=== PATIENT | male | born 1975 | race Caucasian/White ===

== ENCOUNTER 2021-06-17 19:19 | Inpatient (IN) | payer BC ==
[2021-06-17] MEDS ORDERED: Morphine 4 MG/ML Syringe IVPUSH ONE (20:00)
[2021-06-17] MEDS: Sodium Chloride 0.9% 10 ML Syringe FLUSH PRN ×2 (20:12→21:37)
[2021-06-17] MEDS ORDERED: Ondansetron 4 MG/2 ML SDV IVPUSH ONE (20:15)
[2021-06-17] MEDS ORDERED: Lactated Ringers 1,000 ML IV SCH (20:15)
[2021-06-17] MEDS ORDERED: Diatrizoate Meglumine/Diatrizoate Sodium 37% 120 ML Bottle PO ONE (21:23)
[2021-06-17] MEDS ORDERED: Sodium Chloride 0.9% 10 ML SDV FLUSH ONE (21:24)
[2021-06-17] MEDS ORDERED: Iopamidol 612 MG/ML 100 ML Bottle IVPUSH ONE (21:24)
--- NOTE | 2021-06-17 22:37 | EDM.PDOC ---
ED HPI GENERAL MEDICAL PROBLEM - General Chief Complaint: Abdominal Pain Stated Complaint: ABDOMINAL PAIN Time Seen by Provider: 06/17/21 19:30 - History of Present Illness INITIAL COMMENTS - FREE TEXT/NARRATIVE: Patient arrived to ED by private vehicle He is accompanied by his Onset of symptoms was 3 days ago Endorses pain across upper abdomen, which has gotten progressively worse since onset Pain severity is currently rated 9/10 He has not taken anything for pain Associated nausea, without vomiting Had normal bowel movement this morning Denies fever or dysuria He had a partial bowel resection in 2014 for "twisting" of a bowel segment (? obstruction) Since then has had 2 or 3 occurrences of pain similar to current symptoms, which resolved spontaneously over several hours Abdominal Pain Score (Numeric/FACES): 9 - Related Data Allergies Allergy/AdvReac Type Severity Reaction Status Date / Time No Known Allergies Allergy Verified 06/18/21 00:25 Home Meds: Home Meds Aspirin [Luci Chewable Aspirin] 81 mg PO DAILY 06/17/21 [History] Esomeprazole Magnesium [Nexium 24Hr] 20 mg PO DAILY 06/17/21 [History] Glimepiride 1 mg PO DAILY 06/17/21 [History] Multivitamin 1 tab PO DAILY 06/17/21 [History] carvediloL [Carvedilol] 3.125 mg PO DAILY 06/17/21 [History] lisinopriL [Lisinopril] 20 mg PO DAILY 06/17/21 [History] metFORMIN [Glucophage] 500 mg PO DAILY 06/17/21 [History] Social & Family History - Tobacco Use Tobacco Use Status *Q: Former Tobacco User Used Tobacco, but Quit: Yes Month/Year Tobacco Last Used: 05/2020 - Caffeine Use Caffeine Use: Reports: Coffee, Energy Drinks, Soda, Tea - Recreational Drug Use Recreational Drug Use: No ED ROS GENERAL - Review of Systems Review Of Systems: See Below Free Text/Narrative/Comment: Constitutional - no fever Eyes - no eye pain; no visual disturbance ENT - no rhinorrhea; no congestion; no epistaxis Cardiovascular - no chest pain Respiratory - no shortness of breath; no cough Gastrointestinal - abdominal pain; nausea; no vomiting; diarrhea Genitourinary - no dysuria Musculoskeletal - no neck pain; no back pain; no extremity injury Neurological - no headache; no speech disturbance; no weakness ED EXAM, GENERAL - Physical Exam Exam: See Below Free Text/Narrative:: Constitutional - awake; alert; moderate pain distress Head - no facial swelling or weakness Eyes - extra ocular motion intact; conjunctiva normal ENT - no nasal deformity; no epistaxis; normal phonation; mucus membranes moist; Neck - no swelling Respiratory - normal respiratory effort; no crackles or wheezing; no stridor Cardiovascular - regular rhythm; normal rate; S1; S2; grade 1/6 systolic murmur GI/Abdomen - soft; mild distention; moderate tenderness upper abdomen and left lower quadrant; no rebound; no guarding; no mass Musculoskeletal - grossly normal strength and motion; no swelling or deformity Skin - warm; dry Neurologic - normal speech; no weakness; gait intact Psychiatric - normal mood and affect; memory and attention normal Course - Vital Signs Text/Narrative:: . Considered etiologies included: Abdominal pain, pancreatitis, gastritis, biliary colic, bowel obstruction Symptoms and examination were discussed Investigations were initiated Empiric treatment was initiated with IV morphine, ondansetron, and IV fluid infusion At reevaluation pain severity had improved to 6/10 Results were discussed, with CT findings for small bowel obstruction 2234 Patient was discussed with Dr. Young (general surgery) Dr. Young evaluated patient in ED Patient was admitted for further care Last Recorded V/S: Last Vital Signs Temp 36.5 C 06/19/21 00:35 Pulse 63 06/19/21 00:35 Resp 16 06/19/21 00:35 BP 114/77 06/19/21 00:35 Pulse Ox 95 06/19/21 00:35 - Orders/Labs/Meds Orders: Medication Orders Carvedilol (Carvedilol 3.125 Mg Tab) 3.125 mg PO WITHBREAKFAST [facility] Lactated Ringer's (Ringers, Lactated) 1,000 mls @ 100 mls/hr IV ASDIRECTED EARLENE Last Admin: 06/18/21 21:32 Dose: 100 mls/hr Documented by: Infusion: 06/18/21 21:32 Dose: 100 mls/hr Documented by: Admin: 06/18/21 11:48 Dose: 100 mls/hr Documented by: Infusion: 06/18/21 11:13 Dose: 100 mls/hr Documented by: Admin: 06/18/21 01:13 Dose: 100 mls/hr Documented by: DIXON Morphine Sulfate (Morphine 2 Mg/Ml Syringe) 1 mg IVPUSH Q4H PRN PRN Reason: Pain (severe 7-10) Last Admin: 06/18/21 14:35 Dose: 1 mg Documented by: Admin: 06/18/21 03:41 Dose: 1 mg Documented by: Admin: 06/17/21 23:35 Dose: 1 mg Documented by: MK Ondansetron HCl (Ondansetron 4 Mg/2 Ml Sdv) 4 mg IVPUSH Q6H PRN PRN Reason: Nausea Last Admin: 06/18/21 10:30 Dose: 4 mg Documented by: Admin: 06/18/21 01:56 Dose: 4 mg Documented by: DIXON Pantoprazole Sodium (Pantoprazole 40 Mg Tab.Cr) 40 mg PO DAILY EARLENE Sodium Chloride (Sodium Chloride 0.9% 10 Ml Syringe) 10 ml FLUSH ASDIRECTED PRN PRN Reason: Keep Vein Open Last Admin: 06/17/21 21:37 Dose: 10 ml Documented by: Admin: 06/17/21 20:12 Dose: 10 ml Documented by: MK Labs: Laboratory Tests 06/17/21 06/17/21 06/17/21 Range/Units 20:05 20:05 21:27 WBC 11.02 H (4.23-9.07) K/mm3 RBC 5.30 (4.63-6.08) M/mm3 Hgb 15.7 (13.7-17.5) gm/dl Hct 45.9 (40.1-51.0) % MCV 86.6 (79.0-92.2) fl MCH 29.6 (25.7-32.2) pg MCHC 34.2 (32.2-35.5) g/dl RDW Std Deviation 42.0 (35.1-43.9) fL Plt Count 278 (163-337) K/mm3 MPV 10.6 (9.4-12.3) fl Neut % (Auto) 73.3 H (34.0-67.9) % Lymph % (Auto) 17.2 L (21.8-53.1) % [place] % (Auto) 8.3 (5.3-12.2) % Eos % (Auto) 0.7 L (0.8-7.0) Baso % (Auto) 0.3 (0.1-1.2) % Neut # (Auto) 8.07 H (1.78-5.38) K/mm3 Lymph # (Auto) 1.90 (1.32-3.57) K/mm3 [place] # (Auto) 0.92 H (0.30-0.82) K/mm3 Eos # (Auto) 0.08 (0.04-0.54) K/mm3 Baso # (Auto) 0.03 (0.01-0.08) K/mm3 Manual Slide Review Normal smear Sodium 140 (136-145) mEq/L Potassium 4.2 (3.5-5.1) mEq/L Chloride 104 (98-107) mEq/L Carbon Dioxide 27 (21-32) mEq/L Anion Gap 13.2 (5-15) BUN 15 (7-18) mg/dL Creatinine 0.9 (0.7-1.3) mg/dL Est Cr Clr Drug Dosing 93.85 mL/min Estimated GFR (MDRD) > 60 (>60) mL/min BUN/Creatinine Ratio 16.7 (14-18) Glucose 125 H (70-99) mg/dL Calcium 9.2 (8.5-10.1) mg/dL Total Bilirubin 0.6 (0.2-1.0) mg/dL AST 19 (15-37) U/L ALT 43 (16-63) U/L Alkaline Phosphatase 83 (46-116) U/L Total Protein 7.9 (6.4-8.2) g/dl Albumin 4.4 (3.4-5.0) g/dl Globulin 3.5 gm/dL Albumin/Globulin Ratio 1.3 (1-2) Lipase 131 (73-393) U/L Urine Color Yellow (Yellow) Urine Appearance Clear (Clear) Urine pH 7.0 (5.0-8.0) Ur Specific [place] 1.025 (1.005-1.030) Urine Protein Negative (Negative) Urine Glucose (UA) Negative (Negative) Urine Ketones Negative (Negative) Urine Occult Blood Negative (Negative) Urine Nitrite Negative (Negative) Urine Bilirubin Negative (Negative) Urine Urobilinogen 0.2 (0.2-1.0) Ur Leukocyte Esterase Negative (Negative) Urine RBC Not seen (0-5) /hpf Urine WBC 0-5 (0-5) /hpf Ur Epithelial Cells Not seen (0-5) /hpf Amorphous Sediment Few H (NOT SEEN) /hpf Urine Bacteria Rare (FEW) /hpf Urine Mucus Few (FEW) /hpf Meds: Medications Generic Name Dose Route Start Last Admin Trade Name Cody PRN Reason Stop Dose Admin Carvedilol 3.125 mg 06/19/21 09:00 Carvedilol 3.125 Mg Tab PO WITHBREAKFAST EARLENE Lactated Ringer's 1,000 mls @ 100 mls/hr 06/17/21 23:00 06/18/21 21:32 Ringers, Lactated IV 100 mls/hr ASDIRECTED EARLENE Administration Morphine Sulfate 1 mg 06/17/21 22:57 06/18/21 14:35 Morphine 2 Mg/Ml Syringe IVPUSH 1 mg Q4H PRN Administration Pain (severe 7-10) Ondansetron HCl 4 mg 06/18/21 01:11 06/18/21 10:30 Ondansetron 4 Mg/2 Ml Sdv IVPUSH 4 mg Q6H PRN Administration Nausea Pantoprazole Sodium 40 mg 06/19/21 09:00 Pantoprazole 40 Mg Tab.Cr PO DAILY EARLENE Sodium Chloride 10 ml 06/17/21 20:00 06/17/21 21:37 Sodium Chloride 0.9% 10 Ml Syringe FLUSH 10 ml ASDIRECTED PRN Administration Keep Vein Open Discontinued Medications Generic Name Dose Route Start Last Admin Trade Name Cody PRN Reason Stop Dose Admin Diatrizoate Meglum/Diatrizoate Sod 60 ml 06/17/21 21:23 06/17/21 21:37 Diatrizoate Meglumine/Diatrizoate Sodium 37% 120 Ml Bottle PO 06/17/21 21:24 60 ml ONETIME ONE Administration Diatrizoate Meglum/Diatrizoate Sod 120 ml 06/17/21 23:55 06/18/21 00:46 Diatrizoate Meglumine/Diatrizoate Sodium 37% 120 Ml Bottle NGTUBE 06/17/21 23:56 120 ml ONETIME ONE Administration Hydromorphone HCl 1 mg 06/18/21 04:16 06/18/21 08:47 Hydromorphone 1 Mg/Ml Syringe IVPUSH 1 mg Q4H PRN Administration Pain Lactated Ringer's 1,000 mls @ 250 mls/hr 06/17/21 20:15 06/17/21 20:11 Ringers, Lactated IV 250 mls/hr ASDIRECTED EARLENE Administration Sodium Chloride 1,000 mls @ 999 mls/hr 06/18/21 10:36 06/18/21 10:46 Normal Saline IV 06/18/21 11:36 999 mls/hr ONETIME ONE Administration Iopamidol 100 ml 06/17/21 21:24 06/17/21 21:37 Iopamidol 612 Mg/Ml 100 Ml Bottle IVPUSH 06/17/21 21:25 100 ml ONETIME ONE Administration Morphine Sulfate 4 mg 06/17/21 20:00 06/17/21 20:12 Morphine 4 Mg/Ml Syringe IVPUSH 06/17/21 20:01 4 mg ONETIME ONE Administration Ondansetron HCl 4 mg 06/17/21 20:15 06/17/21 20:19 Ondansetron 4 Mg/2 Ml Sdv IVPUSH 06/17/21 20:16 4 mg ONETIME ONE Administration Sodium Chloride 10 ml 06/17/21 21:24 06/17/21 21:54 Sodium Chloride 0.9% 10 Ml Sdv FLUSH 06/17/21 21:25 10 ml ONETIME ONE Administration - Radiology Interpretation Free Text/Narrative:: CT abdomen/pelvis, IV contrast, preliminary radiology report: 1. Partial small bowel obstruction or early complete SBO with transition point at the small bowel anastomosis Departure - Departure Time of Disposition: 23:55 Disposition: Admitted As Inpatient 64 Clinical Impression: Small bowel obstruction - Discharge Information Sepsis Event Note (ED) - Evaluation Sepsis Screening Result: No Definite Risk
--- NOTE | 2021-06-17 23:09 | PCM.HP.2 ---
H&P History of Present Illness - General Date of Service: 06/17/21 Admit Problem/Dx: Admission Diagnosis/Problem Admission Diagnosis/Problem Small bowel obstruction Source of Information: Patient History Limitations: Reports: No Limitations - History of Present Illness Initial Comments - Free Text/Narative: Mr. Headley is a 46 yo man presenting with three days of abdominal pain. He has had similar pain in the past. 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 This is the only abdominal operation he has had. Since then, he has occasionally had episodes of small bowel obstruction type symptoms which all resolved on their own fairly quickly without need for hospitalization or NG decompression. This time, the pain is worse and not going away. It has progressed over the past three days. He has not vomited but feels like he might. He had a bowel movement today but has not been passing flatus for a while. CT shows partial SBO with transition at stapled enteroenterostomy with upstream small bowel fecalization. He has diabetes managed with metformin, HTN, and palpitations for which he takes carvedilol. Abdominal Pain Score (Numeric/FACES): 9 - Related Data Allergies/Adverse Reactions: Allergies Allergy/AdvReac Type Severity Reaction Status Date / Time No Known Allergies Allergy Verified 06/17/21 19:40 Social & Family History - Tobacco Use Tobacco Use Status *Q: Former Tobacco User Used Tobacco, but Quit: Yes Month/Year Tobacco Last Used: 05/2020 - Caffeine Use Caffeine Use: Reports: Coffee, Energy Drinks, Soda, Tea - Recreational Drug Use Recreational Drug Use: No H&P Review of Systems - Review of Systems: Review Of Systems: See Below General: Reports: Malaise HEENT: Reports: No Symptoms Pulmonary: Reports: No Symptoms Cardiovascular: Reports: Palpitations Gastrointestinal: Reports: Abdominal Pain, Nausea Genitourinary: Reports: No Symptoms Musculoskeletal: Reports: No Symptoms Skin: Reports: No Symptoms Psychiatric: Reports: No Symptoms Neurological: Reports: No Symptoms Hematologic/Lymphatic: Reports: No Symptoms Immunologic: Reports: No Symptoms Exam - Exam Exam: See Below - Vital Signs Vital Signs: Last Vital Signs Temp 36.2 C 06/17/21 19:35 Pulse 68 06/17/21 19:35 Resp 18 06/17/21 19:35 BP 146/90 H 06/17/21 19:35 Pulse Ox 98 06/17/21 19:35 Weight: 93.349 kg - Exam General: Alert, Oriented, Mild Distress HEENT: Conjunctiva Clear Neck: Trachea Midline Lungs: Clear to Auscultation, Normal Respiratory Effort Cardiovascular: Regular Rate, Regular Rhythm GI/Abdominal Exam: Other (distended, tender, no rigidity, dull to percussion, midline incision scar with no evident hernia) Extremities: Normal Inspection Skin: Warm, Dry Neuro Extensive - Mental Status: Alert, Oriented x3 Psychiatric: Normal Mood - Patient Data Lab Results Last 24 hrs: Laboratory Results - last 24 hr 06/17/21 06/17/21 06/17/21 Range/Units 20:05 20:05 21:27 WBC 11.02 H (4.23-9.07) K/mm3 RBC 5.30 (4.63-6.08) M/mm3 Hgb 15.7 (13.7-17.5) gm/dl Hct 45.9 (40.1-51.0) % MCV 86.6 (79.0-92.2) fl MCH 29.6 (25.7-32.2) pg MCHC 34.2 (32.2-35.5) g/dl RDW Std Deviation 42.0 (35.1-43.9) fL Plt Count 278 (163-337) K/mm3 MPV 10.6 (9.4-12.3) fl Neut % (Auto) 73.3 H (34.0-67.9) % Lymph % (Auto) 17.2 L (21.8-53.1) % [place] % (Auto) 8.3 (5.3-12.2) % Eos % (Auto) 0.7 L (0.8-7.0) Baso % (Auto) 0.3 (0.1-1.2) % Neut # (Auto) 8.07 H (1.78-5.38) K/mm3 Lymph # (Auto) 1.90 (1.32-3.57) K/mm3 [place] # (Auto) 0.92 H (0.30-0.82) K/mm3 Eos # (Auto) 0.08 (0.04-0.54) K/mm3 Baso # (Auto) 0.03 (0.01-0.08) K/mm3 Manual Slide Review Normal smear Sodium 140 (136-145) mEq/L Potassium 4.2 (3.5-5.1) mEq/L Chloride 104 (98-107) mEq/L Carbon Dioxide 27 (21-32) mEq/L Anion Gap 13.2 (5-15) BUN 15 (7-18) mg/dL Creatinine 0.9 (0.7-1.3) mg/dL Est Cr Clr Drug Dosing 93.85 mL/min Estimated GFR (MDRD) > 60 (>60) mL/min BUN/Creatinine Ratio 16.7 (14-18) Glucose 125 H (70-99) mg/dL Calcium 9.2 (8.5-10.1) mg/dL Total Bilirubin 0.6 (0.2-1.0) mg/dL AST 19 (15-37) U/L ALT 43 (16-63) U/L Alkaline Phosphatase 83 (46-116) U/L Total Protein 7.9 (6.4-8.2) g/dl Albumin 4.4 (3.4-5.0) g/dl Globulin 3.5 gm/dL Albumin/Globulin Ratio 1.3 (1-2) Lipase 131 (73-393) U/L Urine Color Yellow (Yellow) Urine Appearance Clear (Clear) Urine pH 7.0 (5.0-8.0) Ur Specific [place] 1.025 (1.005-1.030) Urine Protein Negative (Negative) Urine Glucose (UA) Negative (Negative) Urine Ketones Negative (Negative) Urine Occult Blood Negative (Negative) Urine Nitrite Negative (Negative) Urine Bilirubin Negative (Negative) Urine Urobilinogen 0.2 (0.2-1.0) Ur Leukocyte Esterase Negative (Negative) Urine RBC Not seen (0-5) /hpf Urine WBC 0-5 (0-5) /hpf Ur Epithelial Cells Not seen (0-5) /hpf Amorphous Sediment Few H (NOT SEEN) /hpf Urine Bacteria Rare (FEW) /hpf Urine Mucus Few (FEW) /hpf Result Diagrams: 06/17/21 20:05 06/17/21 20:05 Sepsis Event Note - Evaluation Sepsis Screening Result: No Definite Risk - Focused Exam Vital Signs: Vital Signs Temp Pulse Resp BP Pulse Ox 06/17/21 19:35 36.2 C 68 18 146/90 H 98 Problem List Initiated/Reviewed/Updated: Yes Orders Last 24hrs: Active Orders 24 hr Category Date Time Status Patient Status [ADT] Routine ADT 06/17/21 22:57 Ordered Activity as Tolerated [RC] .Routine Care 06/17/21 22:57 Ordered Antiembolic Devices [RC] PER UNIT ROUTINE Care 06/17/21 22:58 Ordered Communication Order [RC] ASDIRECTED Care 06/17/21 23:02 Ordered Gastrointestinal Tube Mgmt [RC] ASDIRECTED Care 06/17/21 22:58 Ordered Gastrointestinal Tube Mgmt [RC] ASDIRECTED Care 06/17/21 22:59 Ordered Oxygen Therapy [RC] PRN Care 06/17/21 22:57 Ordered Peripheral IV Care [RC] . DIRECTED Care 06/17/21 20:00 Active RT Incentive Spirometry [RC] Q1HWA Care 06/17/21 22:57 Ordered Vital Signs [RC] Q4HR Care 06/17/21 22:57 Ordered Nothing Per Oral Diet [DIET] Diet 06/17/21 Breakfast Ordered Abdomen 1V Upright [CR] Stat Exams 06/17/21 22:59 Ordered Abdomen 1V Upright [CR] Timed Exams 06/18/21 08:00 Ordered Abdomen Pelvis w Cont [CT] Stat Exams 06/17/21 20:00 Taken Chest 1V Frontal [CR] Stat Exams 06/17/21 22:59 Ordered BASIC METABOLIC PANEL,BMP [CHEM] AM Lab 06/18/21 05:11 Ordered CBC WITH AUTO DIFF [HEME] AM Lab 06/18/21 05:11 Ordered Diatrizoate Mae/Diatrizoate Na [Gastrografin 37%] Med 06/17/21 23:55 Once 120 ml NGTUBE ONETIME ONE Lactated Ringers @ 100 MLS/HR(1000ml Bag) Med 06/17/21 23:00 Ordered Lactated Ringers [Ringers, Lactated] 1,000 ml IV ASDIRECTED Morphine Med 06/17/21 22:57 Ordered 1 mg IVPUSH Q4H PRN Sodium Chloride 0.9% [Saline Flush] Med 06/17/21 20:00 Active 10 ml FLUSH ASDIRECTED PRN Nasogastric Orogastric Tube Insertion [OM.PC] Routine Oth 06/17/21 22:58 Ordered Peripheral IV Insertion Adult [OM.PC] Stat Oth 06/17/21 19:59 Ordered Sequential Compression Device [OM.PC] Routine Oth 06/17/21 22:57 Ordered Resuscitation Status Routine Resus Stat 06/17/21 22:57 Ordered Medication Orders Diatrizoate Meglum/Diatrizoate Sod (Diatrizoate Meglumine/Diatrizoate Sodium 37% 120 Ml Bottle) 120 ml NGTUBE ONETIME ONE Stop: 06/17/21 23:56 Lactated Ringer's (Ringers, Lactated) 1,000 mls @ 100 mls/hr IV ASDIRECTED EARLENE Morphine Sulfate (Morphine 2 Mg/Ml Syringe) 1 mg IVPUSH Q4H PRN PRN Reason: Pain (severe 7-10) Sodium Chloride (Sodium Chloride 0.9% 10 Ml Syringe) 10 ml FLUSH ASDIRECTED PRN PRN Reason: Keep Vein Open Last Admin: 06/17/21 21:37 Dose: 10 ml Documented by: Admin: 06/17/21 20:12 Dose: 10 ml Documented by: MK Assessment/Plan Comment:: What looks like partial SBO at small bowel anastomosis on CT. Plan for NG placement with gastrografin challenge- abdominal plain film ordered for 0800. -morphine prn pain -LR @ 100 cc/hr -NPO- sips okay -NG to LIWS until midnight, then gastrografin challenge (120 mL gastrografin and 30 mL normal saline via NG) and NG clamping -repeat AM labs - Mortality Measure Prognosis:: Good
[2021-06-17] MEDS: Morphine 2 MG/ML SYRINGE IVPUSH PRN (23:35)
[2021-06-17] MEDS ORDERED: Diatrizoate Meglumine/Diatrizoate Sodium 37% 120 ML Bottle NGTUBE ONE (23:55)
[2021-06-18] MEDS: Lactated Ringers 1,000 ML IV SCH ×3 (01:13→21:32)
[2021-06-18] MEDS: Ondansetron 4 MG/2 ML SDV IVPUSH PRN ×2 (01:56→10:30)
[2021-06-18] MEDS: Morphine 2 MG/ML SYRINGE IVPUSH PRN ×2 (03:41→14:35)
[2021-06-18] MEDS: HYDROmorphone 1 MG/ML Syringe IVPUSH PRN ×2 (04:29→08:47)
--- NOTE | 2021-06-18 09:11 | PCM.SN.2 ---
- Free Text/Narrative Note: HD #2, admitted with small bowel obstruction S: severe pain and vomiting overnight, improved this morning. No flatus. O: AF-VSS recorded Ng output of ~700 cc Abd plain film this morning appears to show gastrografin within the colon WBC up from 11 to 12 Awake and alert, no distress breathing comfortably on room air RRR Abd moderately distended, diffusely tender, soft, no rebound A: Presenting with SBO with symptoms for 4 days now. Had prior laparotomy and segmental small bowel resection in 2014. Transition point appears to be at stapled enteroenterostomy the anastomosis appears patent. No flatus. NG output this morning looks clear, not much output currently. Appears to have passed gastrografin challenge. P: -monitor NG output through the day -repeat CBC @ 1400 given rising WBC -NG LIWS with sips okay -LR @ 100 cc/hr
--- NOTE | 2021-06-18 09:15 | CT ---
CT abdomen and pelvis Technique: Multiple axial sections were obtained from above the dome of the diaphragm inferiorly through the pubic symphysis. Intravenous and oral contrast were utilized. Delayed images were also obtained through the bladder. Reconstructed coronal and sagittal images were obtained. Comparison: No prior abdominal imaging is available. Findings: Visualized lung bases show nothing acute. Liver shows mild fatty infiltration. No focal abnormality is appreciated within the liver. Spleen size is normal. Gallbladder contains no calcified gallstones. Adrenal glands show no nodule. Kidneys show symmetric contrast enhancement with no hydronephrosis or mass being seen within either kidney. Delayed images show contrast within the distal ureters and within the bladder. Abdominal aorta shows atherosclerotic calcification which continues into the iliac vessels. No aneurysm is seen. No retroperitoneal adenopathy is noted. No pelvic mass or adenopathy is noted. Minimal fluid is seen within the pelvis. Small bilateral fat-containing inguinal hernias are noted. Small fat-containing umbilical hernia is noted. Mildly dilated loops of small bowel are seen containing fluid and stool. There are anastomotic sutures being seen within the small bowel. This anastomotic area appears to be causing the partial bowel obstruction. Appendix is not visualized. No additional bowel abnormality is appreciated. Bone window settings were reviewed which show minimal degenerative change within the spine. No acute osseous abnormality is appreciated. Impression: 1. Findings suspicious for mild partial small bowel obstruction which appears to occur at a small bowel anastomotic site. 2. Fatty infiltration within the liver and other nonacute findings as noted above. Diagnostic code #3 I agree with preliminary report from [facility], finalized on 06/17/21 , 11:04 PM CDT, code 1
--- NOTE | 2021-06-18 09:18 | CR ---
Chest: Single upright view centered more to the abdomen and chest was obtained. Comparison: Prior CT abdomen and pelvis study performed earlier the same day (9:33 PM). No prior chest or abdomen x-ray. Small bowel gas is noted. Small bowel appears to be slightly dilated. Gas is noted within the colon. No free air is seen. Bony structure show mild scattered degenerative change. No abnormal calcifications or soft tissue abnormality is seen. Nasogastric tube is seen. Tip lies within the stomach. Visualized lung bases show minimal atelectasis within the lateral left costophrenic angle with no additional lung abnormality being seen. Heart size is within normal limits. Impression: 1. Nasogastric tube with tip lying within the stomach. 2. Small bowel appears to be slightly dilated. Diagnostic code #2
--- NOTE | 2021-06-18 09:21 | CR ---
Abdomen: Upright view centered to the diaphragms were obtained. Comparison: Prior abdominal imaging of 06/17/21 which included a chest x-ray and CT abdomen and pelvis. Nasogastric tube is seen. Tip lies within the stomach antrum. Contrast is noted within portions of the small bowel (which appears slightly dilated) and colon from previous CT exam. No free air is seen. Bony structures show nothing acute. Minimal atelectasis is noted within the lateral left costophrenic angle. Impression: 1. Contrast within the small bowel and colon. Slight small bowel dilatation is seen. 2. Nasogastric tube with tip lying within the stomach antrum. Diagnostic code #3
[2021-06-18] MEDS ORDERED: Sodium Chloride 0.9% 1,000 ML IV ONE (10:36)
[2021-06-19] MEDS: Lactated Ringers 1,000 ML IV SCH (07:17)
--- NOTE | 2021-06-19 08:52 | PCM.DCSUM1 ---
Discharge Summary - Hospital Course Free Text/Narrative:: Mr. Headley was admitted with small bowel obstruction on 06/17/2021. 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 An NG tube was placed and gastrografin challenge administered. The following day, a plain film of the abdomen showed contrast in the colon. NG output was a few hundred cc's but looked watery. His pain improved and he began passing flatus and stool the day after admission. The NG tube was removed and diet advanced. On hospital day 3, he felt back to normal, eating and passing flatus and stool. Diagnosis: Stroke: No - Discharge Data Discharge Date: 06/19/21 Discharge Disposition: Home, Self-Care 01 Condition: Good - Referral to Home Health Primary Care Physician: Geovanna Hansen MD - Patient Instructions Diet: Usual Diet as Tolerated Activity: As Tolerated Driving: May Drive Today Showering/Bathing: May Shower - Discharge Plan *PRESCRIPTION DRUG MONITORING PROGRAM REVIEWED*: Not Applicable *COPY OF PRESCRIPTION DRUG MONITORING REPORT IN PATIENT JAILENE: Not Applicable Home Medications: Home Meds Aspirin [Luci Chewable Aspirin] 81 mg PO DAILY 06/17/21 [History] Esomeprazole Magnesium [Nexium 24Hr] 20 mg PO DAILY 06/17/21 [History] Glimepiride 1 mg PO DAILY 06/17/21 [History] Multivitamin 1 tab PO DAILY 06/17/21 [History] carvediloL [Carvedilol] 3.125 mg PO DAILY 06/17/21 [History] lisinopriL [Lisinopril] 20 mg PO DAILY 06/17/21 [History] metFORMIN [Glucophage] 500 mg PO DAILY 06/17/21 [History] Patient Handouts: Steps to Quit Smoking Forms: ED Department Discharge Referrals: Geovanna Hansen MD [Primary Care Provider] - - Discharge Summary/Plan Comment DC Time >30 min.: No Total # of Minutes for Discharge Time: 15 - Patient Data Vitals - Most Recent: Last Vital Signs Temp 36.9 C 06/19/21 05:50 Pulse 64 06/19/21 05:50 Resp 16 06/19/21 05:50 BP 115/76 06/19/21 05:50 Pulse Ox 93 L 06/19/21 05:50 Weight - Most Recent: 92.85 kg I&O - Last 24 hours: Intake & Output 06/18/21 06/19/21 06/19/21 22:59 06:59 14:59 Intake Total 1424 1700 Output Total 1250 4 Balance 174 1696 Lab Results - Last 24 hrs: Laboratory Results - last 24 hr 06/18/21 Range/Units 14:39 WBC 10.67 H (4.23-9.07) K/mm3 RBC 4.90 (4.63-6.08) M/mm3 Hgb 14.6 (13.7-17.5) gm/dl Hct 43.2 (40.1-51.0) % MCV 88.2 (79.0-92.2) fl MCH 29.8 (25.7-32.2) pg MCHC 33.8 (32.2-35.5) g/dl RDW Std Deviation 42.2 (35.1-43.9) fL Plt Count 267 (163-337) K/mm3 MPV 10.3 (9.4-12.3) fl Neut % (Auto) 80.0 H (34.0-67.9) % Lymph % (Auto) 13.6 L (21.8-53.1) % [place] % (Auto) 5.9 (5.3-12.2) % Eos % (Auto) 0.1 L (0.8-7.0) Baso % (Auto) 0.2 (0.1-1.2) % Neut # (Auto) 8.54 H (1.78-5.38) K/mm3 Lymph # (Auto) 1.45 (1.32-3.57) K/mm3 [place] # (Auto) 0.63 (0.30-0.82) K/mm3 Eos # (Auto) 0.01 L (0.04-0.54) K/mm3 Baso # (Auto) 0.02 (0.01-0.08) K/mm3 Med Orders - Current: Current Medications Carvedilol (Carvedilol 3.125 Mg Tab) 3.125 mg PO WITHBREAKFAST EARLENE Lactated Ringer's (Ringers, Lactated) 1,000 mls @ 100 mls/hr IV ASDIRECTED [facility] Last Admin: 06/19/21 07:17 Dose: 100 mls/hr Documented by: Morphine Sulfate (Morphine 2 Mg/Ml Syringe) 1 mg IVPUSH Q4H PRN PRN Reason: Pain (severe 7-10) Last Admin: 06/18/21 14:35 Dose: 1 mg Documented by: Ondansetron HCl (Ondansetron 4 Mg/2 Ml Sdv) 4 mg IVPUSH Q6H PRN PRN Reason: Nausea Last Admin: 06/18/21 10:30 Dose: 4 mg Documented by: Pantoprazole Sodium (Pantoprazole 40 Mg Tab.Cr) 40 mg PO DAILY [facility] Sodium Chloride (Sodium Chloride 0.9% 10 Ml Syringe) 10 ml FLUSH ASDIRECTED PRN PRN Reason: Keep Vein Open Last Admin: 06/17/21 21:37 Dose: 10 ml Documented by: Discontinued Medications Diatrizoate Meglum/Diatrizoate Sod (Diatrizoate Meglumine/Diatrizoate Sodium 37% 120 Ml Bottle) 60 ml PO ONETIME ONE Stop: 06/17/21 21:24 Last Admin: 06/17/21 21:37 Dose: 60 ml Documented by: Diatrizoate Meglum/Diatrizoate Sod (Diatrizoate Meglumine/Diatrizoate Sodium 37% 120 Ml Bottle) 120 ml NGTUBE ONETIME ONE Stop: 06/17/21 23:56 Last Admin: 06/18/21 00:46 Dose: 120 ml Documented by: Hydromorphone HCl (Hydromorphone 1 Mg/Ml Syringe) 1 mg IVPUSH Q4H PRN PRN Reason: Pain Last Admin: 06/18/21 08:47 Dose: 1 mg Documented by: Lactated Ringer's (Ringers, Lactated) 1,000 mls @ 250 mls/hr IV ASDIRECTED [facility] Last Admin: 06/17/21 20:11 Dose: 250 mls/hr Documented by: Sodium Chloride (Normal Saline) 1,000 mls @ 999 mls/hr IV ONETIME ONE Stop: 06/18/21 11:36 Last Admin: 06/18/21 10:46 Dose: 999 mls/hr Documented by: Iopamidol (Iopamidol 612 Mg/Ml 100 Ml Bottle) 100 ml IVPUSH ONETIME ONE Stop: 06/17/21 21:25 Last Admin: 06/17/21 21:37 Dose: 100 ml Documented by: Morphine Sulfate (Morphine 4 Mg/Ml Syringe) 4 mg IVPUSH ONETIME ONE Stop: 06/17/21 20:01 Last Admin: 06/17/21 20:12 Dose: 4 mg Documented by: Ondansetron HCl (Ondansetron 4 Mg/2 Ml Sdv) 4 mg IVPUSH ONETIME ONE Stop: 06/17/21 20:16 Last Admin: 06/17/21 20:19 Dose: 4 mg Documented by: Sodium Chloride (Sodium Chloride 0.9% 10 Ml Sdv) 10 ml FLUSH ONETIME ONE Stop: 06/17/21 21:25 Last Admin: 06/17/21 21:54 Dose: 10 ml Documented by:
[2021-06-19] MEDS ORDERED: Carvedilol 3.125 MG Tab PO SCH (09:00)
[2021-06-19] MEDS ORDERED: Pantoprazole 40 MG Tab.CR PO SCH (09:00)
== END 2021-06-19 10:45 | disposition home or self-care (01) | DRG 247 ==
LOC: JD.ED 19:19 → JD.ICU 22:57 → JD.MS 06-18 08:46
PROVIDERS: ADMIT Surgery; ATTEND Surgery
PROC: 0D9670Z Drainage of Stomach with Drainage Device, Via Natural or Artificial Opening (ICD-10-PCS; principal; 2021-06-17)
DX: K56.609 Unspecified intestinal obstruction, unspecified as to partial versus complete obstruction (principal); I10 Essential (primary) hypertension; Z79.84 Long term (current) use of oral hypoglycemic drugs; Z79.82 Long term (current) use of aspirin; Z20.822 Contact with and (suspected) exposure to COVID-19; E11.9 Type 2 diabetes mellitus without complications; Z87.891 Personal history of nicotine dependence
CPT/HCPCS: 36415; 71045; 71045-26; 74018; 74018-26; 74177; 74177-26; 80048; 80053; 81001; 83690; 85025; 96374; 96375; 99285; 99285-25; A9270-GY; J1170; J2270; J2405; J7030; J7120; Q9963; Q9967; U0002

== ENCOUNTER 2023-03-15 04:43 | Emergency (ER) | payer OTHER ==
[2023-03-15] MEDS ORDERED: HYDROmorphone 1 MG/ML Syringe IM ONE (05:34)
[2023-03-15] MEDS ORDERED: Ketorolac 60 MG/2 ML SDV IM ONE (05:35)
== END 2023-03-15 06:00 | disposition home or self-care (01) ==
LOC: JD.ED 04:43
DX: M25.511 Pain in right shoulder (principal); M25.512 Pain in left shoulder; G89.29 Other chronic pain; I10 Essential (primary) hypertension; K21.9 Gastro-esophageal reflux disease without esophagitis; E11.9 Type 2 diabetes mellitus without complications; E66.9 Obesity, unspecified; Z68.30 Body mass index [BMI] 30.0-30.9, adult; Z79.82 Long term (current) use of aspirin; Z79.899 Other long term (current) drug therapy; Z79.84 Long term (current) use of oral hypoglycemic drugs; Z72.0 Tobacco use
CPT/HCPCS: 96372; 99283; J1170; J1885